=== PATIENT | female | born 1985 | race Caucasian/White ===

== ENCOUNTER 2016-11-26 11:57 | Inpatient (IN) | payer OTHER ==
[2016-11-26 11:59] VITALS: BP 117/71; PULSE 74; RESP 18; TEMP 99.1; O2SAT 99
[2016-11-26] MEDS ORDERED: DEXAMETHASONE SOD PHOS 20 MG/5 ML VIAL IV PUSH ONE (12:30)
[2016-11-26] MEDS ORDERED: AMPICILLIN-SULBACTAM INJ 3 GM in SODIUM CHLORIDE 0.9% INJ 100 ML IV ONE (12:30)
[2016-11-26] MEDS ORDERED: KETOROLAC TROMETHAMINE 30 MG/ML (IVP) VIAL IV PUSH ONE (12:30)
[2016-11-26] MEDS ORDERED: SODIUM CHLOR 0.9% 1000 ML INJ 1,000 ML IV ONE ×2 (12:30)
--- NOTE | 2016-11-26 12:32 | PD ---
HPI Chief Complaint: ENT Complaint Time Seen by Provider: 12:19 Travel History International Travel<30 days: No Contact w/Intl Traveler<30days: No Traveled to known affect area: No History of Present Illness HPI Patient is a 31-year-old female who presents to emergency room from urgent care center for evaluation of possible peritonsillar abscess. Patient reports that for the past week, she has had sore throat. Reports that she has had multiple episodes of tonsillitis which usually resolves on its own. Reports that she went to the urgent care today and was told to go directly to the ER for evaluation of possible peritonsillar abscess. Patient denies any fevers or chills, denies any nausea vomiting. Patient with no other complaints. PFSH Past Medical History Medical History: Denies Significant Hx Diabetes: No Diminished Hearing: No Medical other: Yes (H/O BACK PAIN) Reproductive: No Myocardial Infarction: No Tetanus Vaccination: > 5 Years Influenza Vaccination: No ?: Unknown : 2 Miscarriage: 1 : 1 Past Surgical History Surgical History: No Previous Surgery Gynecologic Surgery: Yes (LEAP PROCEDURE: 2008 FOR PRECANCEROUS CELLS ON CERVEX ) Social History Alcohol Use: Yes ([facility]) Tobacco Use: No (QUIT AGE 23) Substance Use: No Allergies-Medications (Allergen,Severity, Reaction): Coded Allergies: No Known Allergies (Verified , 11/26/16) Reported Meds & Prescriptions Reported Meds & Active Scripts Active No Active Prescriptions or Reported Medications Review of Systems General / Constitutional: No: Fever, Chills Eyes: No: Visual changes HENT: Positive: Sore Throat, No: Headaches Cardiovascular: No: Chest Pain or Discomfort Respiratory: No: Cough, Shortness of Breath Gastrointestinal: No: Abdominal Pain Genitourinary: No: Dysuria Musculoskeletal: No: Pain Skin: No Rash Neurologic: No: Weakness Psychiatric: No: Depression Endocrine: No: Polydipsia Hematologic/Lymphatic: No: Easy Bruising Physical Exam Narrative GENERAL: Mild distress SKIN: Focused skin assessment warm/dry. HEAD: Atraumatic. Normocephalic. EYES: No injection or drainage. ENT: No nasal bleeding or discharge. Mucous membranes pink and moist. Patient with exudates and erythema to posterior pharynx. Increased swelling to right tonsil. Uvula midline with no swelling NECK: Trachea midline. No JVD. CARDIOVASCULAR: Regular rate and rhythm. No murmur appreciated. RESPIRATORY: No accessory muscle use. Clear to auscultation. Breath sounds equal bilaterally. GASTROINTESTINAL: Abdomen soft, non-tender, nondistended. Hepatic and splenic margins not palpable. MUSCULOSKELETAL: No obvious deformities. No clubbing. No cyanosis. No edema. NEUROLOGICAL: Awake and alert. Motor grossly within normal limits. Normal speech. PSYCHIATRIC: Appropriate mood and affect; insight and judgment normal. Data Data Last Documented VS Vital Signs Date Time Temp Pulse Resp B/P (MAP) Pulse Ox O2 Delivery O2 Flow Rate FiO2 11/26/16 14:45 99.0 65 16 107/56 (73) 100 Room Air Orders Orders Basic Metabolic Panel (Bmp) (11/26/16 12:22) Complete Blood Count With Diff (11/26/16 12:22) Group A Rapid Strep Screen (11/26/16 12:22) Iv Access Insert/Monitor (11/26/16 12:22) Dexamethasone Inj (Decadron Inj) (11/26/16 12:30) Ampicillin-Sulbactam Inj (Unasyn Inj) (11/26/16 12:30) Ketorolac Inj (Toradol Inj) (11/26/16 12:30) Ed Urine Pregnancytest Poc (11/26/16 12:22) Ct Soft Tiss Neck W Iv Cont (11/26/16 ) Sodium Chlor 0.9% 1000 Ml Inj (Ns 1000 M (11/26/16 12:30) Sodium Chlor 0.9% 1000 Ml Inj (Ns 1000 M (11/26/16 12:30) Strep Culture (Group A) (11/26/16 12:40) Iohexol 350 Inj (Omnipaque 350 Inj) (11/26/16 13:46) Consult Ent (11/26/16 ) Diet Npo (11/26/16 Dinner) Admit Order (Ed Use Only) (11/26/16 14:45) Labs Laboratory Tests Test 11/26/16 12:40 White Blood Count 8.3 TH/MM3 Red Blood Count 5.06 MIL/MM3 Hemoglobin 14.6 GM/DL Hematocrit 42.3 % Mean Corpuscular Volume 83.5 FL Mean Corpuscular Hemoglobin 28.9 PG Mean Corpuscular Hemoglobin Concent 34.6 % Red Cell Distribution Width 11.5 % Platelet Count 244 TH/MM3 Mean Platelet Volume 8.5 FL Neutrophils (%) (Auto) 70.6 % Lymphocytes (%) (Auto) 18.6 % Monocytes (%) (Auto) 8.5 % Eosinophils (%) (Auto) 1.9 % Basophils (%) (Auto) 0.4 % Neutrophils # (Auto) 5.9 TH/MM3 Lymphocytes # (Auto) 1.5 TH/MM3 Monocytes # (Auto) 0.7 TH/MM3 Eosinophils # (Auto) 0.2 TH/MM3 Basophils # (Auto) 0.0 TH/MM3 CBC Comment DIFF FINAL Differential Comment Blood Urea Nitrogen 9 MG/DL Creatinine 0.81 MG/DL Random Glucose 90 MG/DL Calcium Level 9.0 MG/DL Sodium Level 141 MEQ/L Potassium Level 4.0 MEQ/L Chloride Level 106 MEQ/L Carbon Dioxide Level 30.3 MEQ/L Anion Gap 5 MEQ/L Estimat Glomerular Filtration Rate 83 ML/MIN MDM Medical Decision Making Medical Screen Exam Complete: Yes Emergency Medical Condition: Yes Medical Record Reviewed: Yes Interpretation(s) Vital Signs Date Time Temp Pulse Resp B/P (MAP) Pulse Ox O2 Delivery O2 Flow Rate FiO2 11/26/16 11:59 99.1 74 18 117/71 (86) 99 Differential Diagnosis Differential includes peritonsillar abscess, tonsillitis, strep pharyngitis, viral syndrome Narrative Course Patient is a 31-year-old female who presents to emergency room for evaluation of possible peritonsillar abscess. CBC, BMP, rapid strep ordered. CT of the soft tissue of neck ordered to evaluate for possible peritonsillar abscess. IV Decadron, Unasyn, IV fluids ordered for patient. Plan to monitor patient at this time. Microbiology Date/Time Source Procedure Growth Status 11/26/16 12:40 Throat Group A Streptococcus Screen Pending Received 11/26/16 12:40 Throat Group A Streptococcus Screen (JENI) - Final Complete group a strep neg Last Impressions Neck CT 11/26/16 0000 Signed Impressions: Service Date/Time: Saturday, November 26, 2016 13:37 - CONCLUSION: Ill- defined low density mass in the right side of the pharynx with soft tissue swelling, distortion and mass effect on the airway. There are no gas bubbles. This is most characteristic of an abscess. A mass could have a similar appearance. Israel Zarate MD Patient with what appears to be peritonsillar abscess with mass effect on the airway. Case reviewed with Dr. Staley who will see patient in consult. Plan to transfer to [facility] for care Case reviewed with Dr. Miranda who accepts pt to service at [facility] Critical Care Narrative Aggregate critical care time was 30 minutes. Time to perform other separately billable procedures was not included in the critical care time. My time did not include minutes spent treating any other patients simultaneously or on activities that did not directly contribute to the patient's treatment. The services I provided to this patient were to treat and/or prevent clinically significant deterioration that could result in: , decompensation, deterioration I provided critical care services requiring my management, as noted below: Chart data review, documentation time, medication orders and management, vital sign assessments/reviewing monitor data, ordering and reviewing lab tests, ordering and interpreting/reviewing x-rays and diagnostic studies, care of the patient and discussion of the patient with the admitting physicians. Diagnosis Primary Impression: Peritonsillar abscess Admitting Information Admitting Physician Requests: Admit Scripts No Active Prescriptions or Reported Meds Nataliya Yepez DO Nov 26, 2016 12:32
[2016-11-26 12:55] LABS: AUTOMATED NEUTROPHIL # 5.9 TH/MM3 (1.8-7.7); BASOPHIL % 0.4 % (0.0-2.0); EOSINOPHIL # 0.2 TH/MM3 (0-0.4); EOSINOPHIL % 1.9 % (0.0-4.0); HEMATOCRIT 42.3 % (35.0-46.0); HEMO FLAGS DIFF FINAL; LYMPH % 18.6 % (9.0-44.0); LYMPHOCYTE # 1.5 TH/MM3 (1.0-4.8); MEAN CELL VOLUME 83.5 FL (80.0-100.0); MEAN CORPUSCULAR HEMOGLOBIN 28.9 PG (27.0-34.0); MEAN CORPUSCULAR HGB CONC 34.6 % (32.0-36.0); MONO % 8.5 % (0.0-8.0); NEUT % 70.6 % (16.0-70.0); PLATELET COUNT 244 TH/MM3 (150-450); RED BLOOD COUNT 5.06 MIL/MM3 (4.00-5.30); RED CELL DISTRIBUTION WIDTH 11.5 % (11.6-17.2); WHITE BLOOD COUNT 8.3 TH/MM3 (4.0-11.0)
[2016-11-26 13:31] LABS: BICARBONATE 30.3 MEQ/L (21.0-32.0)
[2016-11-26] MEDS ORDERED: IOHEXOL 350 MG/ML 10 ML VIAL (for RAD DIAG) IVCONTRAST ONE (13:46)
--- NOTE | 2016-11-26 14:03 | RADRPT ---
EXAM DATE/TIME: 11/26/2016 13:37 [facility] COMPARISON: No previous studies available for comparison. INDICATIONS : Swollen tonsils. Neck pain. Evaluate for abscess. IV CONTRAST: 80 cc Omnipaque 350 (iohexol) IV RADIATION DOSE: 11.75 CTDIvol (mGy) MEDICAL HISTORY : None SURGICAL HISTORY : None. ENCOUNTER: Initial ACUITY: 2 days PAIN SCALE: 7/10 LOCATION: neck TECHNIQUE: Volumetric scanning of the neck was performed. Using automated exposure control and adjustment of th e mA and/or kV according to patient size, radiation dose was kept as low as reasonably achievable to obtain optimal diagnostic quality images. DICOM format image data is available electronically for r eview and comparison. FINDINGS: NASOPHARYNX: The nasopharyngeal airway has a normal configuration. No mucosal thickening or mass is seen. There i s a small retention cyst in the right maxillary sinus. OROPHARYNX: The intrinsic muscles of the tongue are symmetric. There is an ill-defined low density mass in the ri ght side of pharynx measuring up to least 1.9 x 1.9 cm. This extends from the nasopharynx down to the base of the tongue. There is distortion of the soft tissues with mass effect on the airway. The airw ay is displaced to the left approximately 8-9 mm. There no gas bubbles. LARYNX: The supraglottic, glottic, and infraglottic structures are intact. PARAPHARYNGEAL: The parapharyngeal space is intact. SALIVARY GLANDS: The parotid and submandibular glands are intact. LYMPH NODES: There is a mildly prominent right cervical chain node with no necrosis. This measures up to approxima tely 1.2 x 1 cm and likely is reactive. There are smaller scattered reactive appearing nodes. THYROID: Homogeneous enhancement without evidence of nodule. BONES: Unremarkable. CONCLUSION: Ill-defined low density mass in the right side of the pharynx with soft tissue swelling, distortion a nd mass effect on the airway. There are no gas bubbles. This is most characteristic of an abscess. A mass could have a similar appearance. Israel Zarate MD on November 26, 2016 at 13:56 Board Certified Radiologist. This report was verified electronically.
[2016-11-26 14:45] VITALS: BP 107/56; PULSE 65; RESP 16; TEMP 99; O2SAT 100
[2016-11-26] MEDS ORDERED: KETOROLAC TROMETHAMINE 30 MG/ML (IVP) VIAL IV PUSH PRN (15:00)
[2016-11-26 16:45] VITALS: BP 154/65; PULSE 76; RESP 22; O2SAT 92
[2016-11-26 16:46] VITALS: BP 119/75; PULSE 79; RESP 16; O2SAT 98
[2016-11-26 17:30] VITALS: BP 104/61; PULSE 61; RESP 18; TEMP 97.9; O2SAT 98
[2016-11-26] MEDS: SODIUM CHLOR 0.9% 1000 ML INJ 1,000 ML IV SCH (17:47)
[2016-11-26] MEDS: AMPICILLIN-SULBACTAM INJ 3 GM in SODIUM CHLORIDE 0.9% INJ 100 ML IV SCH (17:48)
--- NOTE | 2016-11-26 18:25 | HHI.HP ---
[facility] No Primary Care Physician Admission Diagnosis Peritonsillar abscess with airway involvement Diagnoses: (1) Peritonsillar abscess Diagnosis: Principal Chief Complaint: sore throat Travel History International Travel<30 Days: No Contact w/Intl Traveler <30 Da: No Traveled to Known Affected Are: No History of Present Illness patient is a 31 y/o female with no significant past medical history who presented with sore throat. she says that she's always had ' tonsil problem' . this time her sore throat started two days ago but it didn't improve which made her to seek medical attention. she doesn't report any fever or chills but had some difficulty swallowing. at the time of my evaluation she was resting comfortably with no distress. her sore throat has improved. Review of Systems Constitutional: DENIES: Fever, Weight loss, Chills, Night Sweats Eyes: DENIES: Blurred vision, Diplopia, Vision loss, Double Vision Ears, nose, mouth, throat: COMPLAINS OF: Throat pain, DENIES: Tinnitus, Vertigo , Epistaxis Respiratory: DENIES: Apneas, Cough, Snoring, Wheezing, Hemoptysis, Sputum production, Shortness of breath Cardiovascular: DENIES: Chest pain, Palpitations, Syncope, Dyspnea on Exertion , PND, Lower Extremity Edema, Orthopnea, Claudication Gastrointestinal: COMPLAINS OF: Difficulty Swallowing, DENIES: Abdominal pain, Black stools, Bloody stools, Constipation, Diarrhea, Nausea, Vomiting, Anorexia Genitourinary: DENIES: Urinary frequency, Urgency, Hematuria, Dysuria Musculoskeletal: DENIES: Joint pain, Muscle aches, Stiffness, Joint Swelling Integumentary: DENIES: Rash Neurologic: DENIES: Abnormal gait, Headache, Localized weakness, Paresthesias, Seizures, Speech Problems, Tremor, Poor Balance Psychiatric: DENIES: Anxiety, Confusion, Mood changes, Depression, Hallucinations, Agitation, Suicidal Ideation, Homicidal Ideation, Delusions Past Family Social History Past Medical History not significant. Past Surgical History leap procedure. Reported Medications none reported. Allergies: Coded Allergies: No Known Allergies (Verified , 11/26/16) Active Ordered Medications Current Medications Dexamethasone Sodium Phosphate (Decadron Inj) 10 mg ONCE ONCE IV PUSH Last administered on 11/26/16 12:47; Start 11/26/16 at 12:30; Stop 11/26/16 at 12:31 ; Status DC Ampicillin Sodium/ Sulbactam Sodium 3 gm/Sodium Chloride 100 ml @ 200 mls/hr ONCE ONCE IV Last administered on 11/26/16 12:47; Start 11/26/16 at 12:30; Stop 11/26/16 at 12:59; Status DC Ketorolac Tromethamine (Toradol Inj) 30 mg ONCE ONCE IV PUSH Last administered on 11/26/16 12:47; Start 11/26/16 at 12:30; Stop 11/26/16 at 12:31 ; Status DC Sodium Chloride 1,000 ml @ 999 mls/hr BOLUS ONCE IV Last administered on 11/26 12:47; Start 11/26/16 at 12:30; Stop 11/26/16 at 13:30; Status DC Sodium Chloride 1,000 ml @ 999 mls/hr BOLUS ONCE IV Last administered on 11/26 14:14; Start 11/26/16 at 12:30; Stop 11/26/16 at 13:30; Status DC Iohexol (Omnipaque 350 Inj) 80 ml STK-MED ONCE IVCONTRAST Last administered on 11/26/16 13:46; Start 11/26/16 at 13:46; Stop 11/26/16 at 13:47; Status DC Sodium Chloride 1,000 ml @ 100 mls/hr Q10H IV Last administered on 11/26/16 17:47; Start 11/26/16 at 15:00 Ampicillin Sodium/ Sulbactam Sodium 3 gm/Sodium Chloride 100 ml @ 200 mls/hr Q6H IV Last administered on 11/26/16 17:48; Start 11/26/16 at 18:00 Ketorolac Tromethamine (Toradol Inj) 15 mg Q6HR PRN IV PUSH FEVER/PAIN 1-10; Start 11/26/16 at 15:00; Stop 12/01/16 at 14:59 Family History hypertension in both parents. Social History doesn't smoke.drinks occasionally. Physical Exam Vital Signs Vital Signs Date Time Temp Pulse Resp B/P (MAP) Pulse Ox O2 Delivery O2 Flow Rate FiO2 11/26/16 16:47 11/26/16 16:46 79 16 119/75 (90) 98 Room Air 11/26/16 14:45 99.0 65 16 107/56 (73) 100 Room Air 11/26/16 11:59 99.1 74 18 117/71 (86) 99 Physical Exam GENERAL: This is a well-nourished, well-developed patient, in no apparent distress. SKIN: No rashes, ecchymoses or lesions. Cool and dry. HEAD: Atraumatic. Normocephalic. No temporal or scalp tenderness. EYES: Pupils equal round and reactive. Extraocular motions intact. No scleral icterus. No injection or drainage. ENT:enlarged tonsil on the right NECK: Trachea midline. No JVD or lymphadenopathy. Supple, nontender, no meningeal signs. CARDIOVASCULAR: Regular rate and rhythm without murmurs, gallops, or rubs. RESPIRATORY: Clear to auscultation. Breath sounds equal bilaterally. No wheezes , rales, or rhonchi. GASTROINTESTINAL: Abdomen soft, non-tender, nondistended. No hepato-splenomegaly , or palpable masses. No guarding. MUSCULOSKELETAL: Extremities without clubbing, cyanosis, or edema. No joint tenderness, effusion, or edema noted. No calf tenderness. Negative Homans sign bilaterally. NEUROLOGICAL: Awake and alert. Cranial nerves II through XII intact. Motor and sensory grossly within normal limits. Five out of 5 muscle strength in all muscle groups. Normal speech. Laboratory Laboratory Tests Test 11/26/16 12:40 White Blood Count 8.3 Red Blood Count 5.06 Hemoglobin 14.6 Hematocrit 42.3 Mean Corpuscular Volume 83.5 Mean Corpuscular Hemoglobin 28.9 Mean Corpuscular Hemoglobin Concent 34.6 Red Cell Distribution Width 11.5 Platelet Count 244 Mean Platelet Volume 8.5 Neutrophils (%) (Auto) 70.6 Lymphocytes (%) (Auto) 18.6 Monocytes (%) (Auto) 8.5 Eosinophils (%) (Auto) 1.9 Basophils (%) (Auto) 0.4 Neutrophils # (Auto) 5.9 Lymphocytes # (Auto) 1.5 Monocytes # (Auto) 0.7 Eosinophils # (Auto) 0.2 Basophils # (Auto) 0.0 CBC Comment DIFF FINAL Differential Comment Blood Urea Nitrogen 9 Creatinine 0.81 Random Glucose 90 Calcium Level 9.0 Sodium Level 141 Potassium Level 4.0 Chloride Level 106 Carbon Dioxide Level 30.3 Anion Gap 5 Estimat Glomerular Filtration Rate 83 Date/Time Source Procedure Growth Status 11/26/16 12:40 Throat Group A Streptococcus Screen Pending Received Result Diagram: 11/26/16 1240 11/26/16 1240 Imaging Last Impressions Neck CT 11/26/16 0000 Signed Impressions: Service Date/Time: Saturday, November 26, 2016 13:37 - CONCLUSION: Ill- defined low density mass in the right side of the pharynx with soft tissue swelling, distortion and mass effect on the airway. There are no gas bubbles. This is most characteristic of an abscess. A mass could have a similar appearance. MD Niall Loving VTE Risk Assessment Niall VTE Risk Assessment: No/Low Risk (score <= 1) Caprini Risk Assessment Model Point Value = 1 Point Value = 2 Point Value = 3 Point Value = 5 Age 41-60 Minor surgery BMI > 25 kg/m2 Swollen legs Varicose veins or History of unexplained or recurrent spontaneous Oral contraceptives or hormone replacement Sepsis (< 1 month) Serious lung disease, including pneumonia (< 1 month) Abnormal pulmonary function Acute myocardial infarction Congestive heart failure (< 1 month) History of inflammatory bowel disease Medical patient at bed rest Age 61-74 Arthroscopic surgery Major open surgery (> 45 min) Laparoscopic surgery (> 45 min) Malignancy Confined to bed (> 72 hours) Immobilizing plaster cast Central venous access Age >= 75 History of VTE Family history of VTE Factor V Leiden Prothrombin [id number] Lupus anticoagulant Anticardiolipin antibodies Elevated serum homocysteine Heparin-induced thrombocytopenia Other congenital or acquired thrombophilia Stroke (< 1 month) Elective arthroplasty Hip, pelvis, or leg fracture Acute spinal cord injury (< 1 month) Prophylaxis Regimen Total Risk Factor Score Risk Level Prophylaxis Regimen 0-1 Low Early ambulation 2 Moderate Order ONE of the following: *Sequential Compression Device (SCD) *Heparin 5000 units SQ BID 3-4 Higher Order ONE of the following medications: *Heparin 5000 units SQ TID *Enoxaparin/Lovenox 40 mg SQ daily (WT < 150 kg, CrCl > 30 mL/min) *Enoxaparin/Lovenox 30 mg SQ daily (WT < 150 kg, CrCl > 10-29 mL/min) *Enoxaparin/Lovenox 30 mg SQ BID (WT < 150 kg, CrCl > 30 mL/min) AND/OR *Sequential Compression Device (SCD) 5 or more Highest Order ONE of the following medications: *Heparin 5000 units SQ TID (Preferred with Epidurals) *Enoxaparin/Lovenox 40 mg SQ daily (WT < 150 kg, CrCl > 30 mL/min) *Enoxaparin/Lovenox 30 mg SQ daily (WT < 150 kg, CrCl > 10-29 mL/min) *Enoxaparin/Lovenox 30 mg SQ BID (WT < 150 kg, CrCl > 30 mL/min) AND *Sequential Compression Device (SCD) Assessment and Plan Assessment and Plan A/P - peritonsillar abscess continue with IV Unasyn and pain control. NPO for now and continue IV fluid- ENT consulted. -DVT prophylaxis- low risk; early ambulation Discussed Condition With ER physician and the patient. Physician Certification 2 Midnight Certification Type: Admission for Inpatient Services Order for Inpatient Services The services are ordered in accordance with Medicare regulations or non- Medicare payer requirements, as applicable. In the case of services not specified as inpatient-only, they are appropriately provided as inpatient services in accordance with the 2-midnight benchmark. Estimated LOS (days): 2 days is the estimated time the patient will need to remain in the hospital, assuming treatment plan goals are met and no additional complications. Post-Hospital Plan: Home Physician Certification 2 Midnight Certification Type: Admission for Inpatient Services Order for Inpatient Services The services are ordered in accordance with Medicare regulations or non- Medicare payer requirements, as applicable. In the case of services not specified as inpatient-only, they are appropriately provided as inpatient services in accordance with the 2-midnight benchmark. Estimated LOS (days): 2 days is the estimated time the patient will need to remain in the hospital, assuming treatment plan goals are met and no additional complications. Post-Hospital Plan: Home Bhanu Jimenez MD Nov 26, 2016 18:25
[2016-11-26] MEDS ORDERED: ONDANSETRON HCL 4 MG/2 ML VIAL IV PUSH PRN (18:30)
[2016-11-26 21:05] VITALS: BP 109/70; PULSE 83; RESP 16; TEMP 99; O2SAT 97
[2016-11-26] MEDS: DEXAMETHASONE SOD PHOS 20 MG/5 ML VIAL IV SCH (22:12)
[2016-11-27] MEDS: AMPICILLIN-SULBACTAM INJ 3 GM in SODIUM CHLORIDE 0.9% INJ 100 ML IV SCH ×5 (00:41→23:58)
[2016-11-27 00:50] VITALS: BP 91/54; PULSE 74; RESP 16; TEMP 97; O2SAT 100
[2016-11-27] MEDS: SODIUM CHLOR 0.9% 1000 ML INJ 1,000 ML IV SCH ×3 (01:00→21:00)
[2016-11-27 03:45] VITALS: BP 105/58; PULSE 66; RESP 16; TEMP 96.4; O2SAT 97
--- NOTE | 2016-11-27 05:26 | MB ---
cc: SALOMÓN STALEY MD DATE OF CONSULTATION 11/26/2016 CHIEF COMPLAINT Peritonsillar infection. HISTORY The patient is a pleasant 31-year-old female with a CT-confirmed right peritonsillar infection. She had no shortness of breath but she has had sore throat. She is feeling improved over throughout the evening with just Unasyn on board. I believe she got one dose of Decadron prior to transfer. The patient is currently somewhat anxious to eat, feeling much better. FINDINGS On flexible fiberoptic laryngoscopy the patient had mild fullness in the right peripharyngeal area but no definitive abscess. Her airway was otherwise widely and her larynx and her vocal cords move well bilaterally. RECOMMENDATIONS 1. As the patient is starting to improve, I recommend giving her a liquid diet this evening. 2. I also recommend Decadron 10 mg IV q.8 hours x up to 5 doses depending on how long the patient is in house. 3. Also recommend the patient continue the IV antibiotics. 4. The patient will likely be able to go home either tomorrow evening or Sunday depending on how she is feeling. 5. I recommend, when she goes home, she go home on two weeks of oral antibiotics as well as a Medrol Dosepak. 6. The patient may follow up with ENT in two to four weeks or earlier as needed. Thank you for this consultation. Salomón Staley MD CCP/SSB /9:02 PM /5:16 AM
[2016-11-27] MEDS: DEXAMETHASONE SOD PHOS 20 MG/5 ML VIAL IV SCH ×3 (05:56→21:33)
[2016-11-27 08:00] VITALS: BP 102/59; PULSE 52; RESP 18; TEMP 97.2; O2SAT 96
[2016-11-27 08:41] LABS: AUTOMATED NEUTROPHIL # 13.6 TH/MM3 (1.8-7.7); BASOPHIL % 0.2 % (0.0-2.0); HEMATOCRIT 38.8 % (35.0-46.0); HEMO FLAGS DIFF FINAL; LYMPH % 7.5 % (9.0-44.0); LYMPHOCYTE # 1.1 TH/MM3 (1.0-4.8); MEAN CELL VOLUME 84.2 FL (80.0-100.0); MEAN CORPUSCULAR HEMOGLOBIN 28.4 PG (27.0-34.0); MEAN CORPUSCULAR HGB CONC 33.8 % (32.0-36.0); MONO % 2.2 % (0.0-8.0); NEUT % 90.1 % (16.0-70.0); PLATELET COUNT 230 TH/MM3 (150-450); RED BLOOD COUNT 4.61 MIL/MM3 (4.00-5.30); RED CELL DISTRIBUTION WIDTH 12.3 % (11.6-17.2); WHITE BLOOD COUNT 15.1 TH/MM3 (4.0-11.0)
--- NOTE | 2016-11-27 09:03 | HHI.PR ---
Subjective Remarks resting comfortably with no distress. sore throat is better. no fever. no new complaints. Objective Vitals Vital Signs Date Time Temp Pulse Resp B/P (MAP) Pulse Ox O2 Delivery O2 Flow Rate FiO2 11/27/16 03:45 96.4 66 16 105/58 (74) 97 11/27/16 00:50 97.0 74 16 91/54 (66) 100 11/26/16 21:05 99.0 83 16 109/70 (83) 97 11/26/16 17:30 97.9 61 18 104/61 (75) 98 11/26/16 16:47 11/26/16 16:46 79 16 119/75 (90) 98 Room Air 11/26/16 14:45 99.0 65 16 107/56 (73) 100 Room Air 11/26/16 11:59 99.1 74 18 117/71 (86) 99 I/O 11/26/16 11/26/16 11/26/16 11/27/16 11/27/16 11/27/16 07:00 15:00 23:00 07:00 15:00 23:00 Intake Total 1100 ml 1660 ml 590 ml Balance 1100 ml 1660 ml 590 ml Intake Oral 660 ml 240 ml IV Total 1100 ml 1000 ml 350 ml # Voids 1 2 # Bowel Movements 0 0 Result Diagram: 11/27/16 0807 11/26/16 1240 Imaging Last Impressions Neck CT 11/26/16 0000 Signed Impressions: Service Date/Time: Saturday, November 26, 2016 13:37 - CONCLUSION: Ill- defined low density mass in the right side of the pharynx with soft tissue swelling, distortion and mass effect on the airway. There are no gas bubbles. This is most characteristic of an abscess. A mass could have a similar appearance. Israel Zarate MD Objective Remarks GENERAL: This is a well-nourished, well-developed patient, in no apparent distress. CARDIOVASCULAR: Regular rate and regular rhythm without murmurs, gallops, or rubs. RESPIRATORY: Clear to auscultation. Breath sounds equal bilaterally. No wheezes , rales, or rhonchi. GASTROINTESTINAL: Abdomen soft, non-tender, nondistended. Normal, active bowel sounds MUSCULOSKELETAL: Extremities without clubbing, cyanosis, or edema. NEURO: Alert & Oriented x4 to person, place, time, situation. Moves all ext x4 Procedures flexible laryngoscopy Medications and IVs Current Medications Dexamethasone Sodium Phosphate (Decadron Inj) 10 mg ONCE ONCE IV PUSH Last administered on 11/26/16 12:47; Start 11/26/16 at 12:30; Stop 11/26/16 at 12:31 ; Status DC Ampicillin Sodium/ Sulbactam Sodium 3 gm/Sodium Chloride 100 ml @ 200 mls/hr ONCE ONCE IV Last administered on 11/26/16 12:47; Start 11/26/16 at 12:30; Stop 11/26/16 at 12:59; Status DC Ketorolac Tromethamine (Toradol Inj) 30 mg ONCE ONCE IV PUSH Last administered on 11/26/16 12:47; Start 11/26/16 at 12:30; Stop 11/26/16 at 12:31 ; Status DC Sodium Chloride 1,000 ml @ 999 mls/hr BOLUS ONCE IV Last administered on 11/26 12:47; Start 11/26/16 at 12:30; Stop 11/26/16 at 13:30; Status DC Sodium Chloride 1,000 ml @ 999 mls/hr BOLUS ONCE IV Last administered on 11/26 14:14; Start 11/26/16 at 12:30; Stop 11/26/16 at 13:30; Status DC Iohexol (Omnipaque 350 Inj) 80 ml STK-MED ONCE IVCONTRAST Last administered on 11/26/16 13:46; Start 11/26/16 at 13:46; Stop 11/26/16 at 13:47; Status DC Sodium Chloride 1,000 ml @ 100 mls/hr Q10H IV Last administered on 11/26/16 17:47; Start 11/26/16 at 15:00 Ampicillin Sodium/ Sulbactam Sodium 3 gm/Sodium Chloride 100 ml @ 200 mls/hr Q6H IV Last administered on 11/27/16 05:56; Start 11/26/16 at 18:00 Ketorolac Tromethamine (Toradol Inj) 15 mg Q6HR PRN IV PUSH FEVER/PAIN 1-10; Start 11/26/16 at 15:00; Stop 12/01/16 at 14:59 Ondansetron HCl (Zofran Inj) 4 mg Q8HR PRN IV PUSH NAUSEA; Start 11/26/16 at 18 :30 Dexamethasone Sodium Phosphate (Decadron Inj) 10 mg Q8H IV Last administered on 11/27/16t 05:56; Start 11/26/16 at 22:00; Stop 11/28/16 at 06:01 A/P Assessment and Plan - peritonsillar abscess ENT consulted - s/p flexible laryngoscopy continue with IV Unasyn, IV steroids and pain control. started on diet- -leukocytosis due to steroids- afebrile. -DVT prophylaxis- low risk; early ambulation Discharge Planning dc home tomorrow if stable. Bhanu Jimenez MD Nov 27, 2016 09:03
[2016-11-27] MEDS ORDERED: AUGM875T3 PO (09:04)
[2016-11-27] MEDS ORDERED: MEDR4PAK PO (09:04)
[2016-11-27 09:08] LABS: BICARBONATE 24.8 MEQ/L (21.0-32.0); POTASSIUM 4.8 MEQ/L (3.5-5.1)
[2016-11-27 12:00] VITALS: BP 94/50; PULSE 58; RESP 18; TEMP 98.1; O2SAT 98
[2016-11-27 16:00] VITALS: BP 104/56; PULSE 67; RESP 18; TEMP 97.8; O2SAT 99
[2016-11-27 20:10] VITALS: BP 104/62; PULSE 63; RESP 17; TEMP 98.2; O2SAT 95
[2016-11-28] VITALS: BP 115/58; PULSE 64; RESP 15; TEMP 96.8; O2SAT 98
[2016-11-28] MEDS: AMPICILLIN-SULBACTAM INJ 3 GM in SODIUM CHLORIDE 0.9% INJ 100 ML IV SCH (06:27)
[2016-11-28] MEDS: DEXAMETHASONE SOD PHOS 20 MG/5 ML VIAL IV SCH (06:27)
[2016-11-28] MEDS: SODIUM CHLOR 0.9% 1000 ML INJ 1,000 ML IV SCH (07:00)
[2016-11-28 08:00] VITALS: BP 107/62; PULSE 53; RESP 18; TEMP 96.6; O2SAT 96
--- NOTE | 2016-11-28 09:55 | HHI.DS ---
Discharge Summary Admission Date Nov 26, 2016 at 14:46 Discharge Date: Nov 28, 2016 Admitting Diagnosis Peritonsillar abscess with airway involvement (1) Peritonsillar abscess ICD Code: J36 - Peritonsillar abscess Diagnosis: Principal Status: Acute Procedures flexible laryngoscopy Brief History - From Admission patient is a 31 y/o female with no significant past medical history who presented with sore throat. she says that she's always had ' tonsil problem' . this time her sore throat started two days ago but it didn't improve which made her to seek medical attention. she doesn't report any fever or chills but had some difficulty swallowing. at the time of my evaluation she was resting comfortably with no distress. her sore throat has improved. CBC/BMP: 11/27/16 0807 11/27/16 0807 Significant Findings Laboratory Tests Test 11/26/16 12:40 11/27/16 08:07 Red Cell Distribution Width 11.5 % (11.6-17.2) Neutrophils (%) (Auto) 70.6 % (16.0-70.0) 90.1 % (16.0-70.0) Monocytes (%) (Auto) 8.5 % (0.0-8.0) Estimat Glomerular Filtration Rate 83 ML/MIN (>89) White Blood Count 15.1 TH/MM3 (4.0-11.0) Lymphocytes (%) (Auto) 7.5 % (9.0-44.0) Neutrophils # (Auto) 13.6 TH/MM3 (1.8-7.7) Random Glucose 140 MG/DL (74-106) Chloride Level 108 MEQ/L (98-107) Imaging Last Impressions Neck CT 11/26/16 0000 Signed Impressions: Service Date/Time: Saturday, November 26, 2016 13:37 - CONCLUSION: Ill- defined low density mass in the right side of the pharynx with soft tissue swelling, distortion and mass effect on the airway. There are no gas bubbles. This is most characteristic of an abscess. A mass could have a similar appearance. Israel Zarate MD PE at Discharge GENERAL: This is a well-nourished, well-developed patient, in no apparent distress. CARDIOVASCULAR: Regular rate and regular rhythm without murmurs, gallops, or rubs. RESPIRATORY: Clear to auscultation. Breath sounds equal bilaterally. No wheezes , rales, or rhonchi. GASTROINTESTINAL: Abdomen soft, non-tender, nondistended. Normal, active bowel sounds MUSCULOSKELETAL: Extremities without clubbing, cyanosis, or edema. NEURO: Alert & Oriented x4 to person, place, time, situation. Moves all ext x4 Hospital Course - peritonsillar abscess- improved. ENT consulted - s/p flexible laryngoscopy treated with IV Unasyn, IV steroids ; will switch to po augmentin and medrol dosepak. -leukocytosis due to steroids- afebrile. -DVT prophylaxis- low risk; early ambulation Pt Condition on Discharge: Good Discharge Disposition: Discharge Home Discharge Time: <= 30 minutes Discharge Instructions DIET: Follow Instructions for: As Tolerated, No Restrictions Activities you can perform: Regular-No Restrictions Follow up Referrals: Ear Nose Throat PCP Follow-up New Medications: Amoxicillin-Clavulanate (Augmentin) 875-125 Mg Tab 1 TAB PO BID for Infection for 14 Days, #28 TAB 0 Refills Methylprednisolone Dosepak (Medrol Dosepak) 4 Mg Dspk 4 MG PO DIRECTED, #1 DSPK 0 Refills Per Pharmacist direction Bhanu Jimenez MD Nov 28, 2016 09:55
--- NOTE | 2016-11-28 09:55 | HHI.PR ---
Subjective Remarks in no distress. afebrile. has mild sore throat otherwise no other complaints. wants to go home today. Objective Vitals Vital Signs Date Time Temp Pulse Resp B/P (MAP) Pulse Ox O2 Delivery O2 Flow Rate FiO2 11/28/16 08:00 96.6 53 18 107/62 (77) 96 11/28/16 00:00 96.8 64 15 115/58 (77) 98 11/27/16 20:10 98.2 63 17 104/62 (76) 95 11/27/16 16:00 97.8 67 18 104/56 (72) 99 11/27/16 12:00 98.1 58 18 94/50 (65) 98 I/O 11/27/16 11/27/16 11/27/16 11/28/16 11/28/16 11/28/16 07:00 15:00 23:00 07:00 15:00 23:00 Intake Total 590 ml 800 ml 240 ml 480 ml Balance 590 ml 800 ml 240 ml 480 ml Intake Oral 240 ml 600 ml 240 ml 480 ml IV Total 350 ml 200 ml # Voids 2 3 2 3 # Bowel Movements 0 0 0 0 Result Diagram: 11/27/16 0807 11/27/16 0807 Imaging Last Impressions Neck CT 11/26/16 0000 Signed Impressions: Service Date/Time: Saturday, November 26, 2016 13:37 - CONCLUSION: Ill- defined low density mass in the right side of the pharynx with soft tissue swelling, distortion and mass effect on the airway. There are no gas bubbles. This is most characteristic of an abscess. A mass could have a similar appearance. Israel Zarate MD Objective Remarks GENERAL: This is a well-nourished, well-developed patient, in no apparent distress. CARDIOVASCULAR: Regular rate and regular rhythm without murmurs, gallops, or rubs. RESPIRATORY: Clear to auscultation. Breath sounds equal bilaterally. No wheezes , rales, or rhonchi. GASTROINTESTINAL: Abdomen soft, non-tender, nondistended. Normal, active bowel sounds MUSCULOSKELETAL: Extremities without clubbing, cyanosis, or edema. NEURO: Alert & Oriented x4 to person, place, time, situation. Moves all ext x4 Procedures flexible laryngoscopy Medications and IVs Current Medications Dexamethasone Sodium Phosphate (Decadron Inj) 10 mg ONCE ONCE IV PUSH Last administered on 11/26/16 12:47; Start 11/26/16 at 12:30; Stop 11/26/16 at 12:31 ; Status DC Ampicillin Sodium/ Sulbactam Sodium 3 gm/Sodium Chloride 100 ml @ 200 mls/hr ONCE ONCE IV Last administered on 11/26/16 12:47; Start 11/26/16 at 12:30; Stop 11/26/16 at 12:59; Status DC Ketorolac Tromethamine (Toradol Inj) 30 mg ONCE ONCE IV PUSH Last administered on 11/26/16 12:47; Start 11/26/16 at 12:30; Stop 11/26/16 at 12:31 ; Status DC Sodium Chloride 1,000 ml @ 999 mls/hr BOLUS ONCE IV Last administered on 11/26 12:47; Start 11/26/16 at 12:30; Stop 11/26/16 at 13:30; Status DC Sodium Chloride 1,000 ml @ 999 mls/hr BOLUS ONCE IV Last administered on 11/26 14:14; Start 11/26/16 at 12:30; Stop 11/26/16 at 13:30; Status DC Iohexol (Omnipaque 350 Inj) 80 ml STK-MED ONCE IVCONTRAST Last administered on 11/26/16 13:46; Start 11/26/16 at 13:46; Stop 11/26/16 at 13:47; Status DC Sodium Chloride 1,000 ml @ 100 mls/hr Q10H IV Last administered on 11/27/16 11:40; Start 11/26/16 at 15:00 Ampicillin Sodium/ Sulbactam Sodium 3 gm/Sodium Chloride 100 ml @ 200 mls/hr Q6H IV Last administered on 11/28/16 06:27; Start 11/26/16 at 18:00 Ketorolac Tromethamine (Toradol Inj) 15 mg Q6HR PRN IV PUSH FEVER/PAIN 1-10; Start 11/26/16 at 15:00; Stop 12/01/16 at 14:59 Ondansetron HCl (Zofran Inj) 4 mg Q8HR PRN IV PUSH NAUSEA; Start 11/26/16 at 18 :30 Dexamethasone Sodium Phosphate (Decadron Inj) 10 mg Q8H IV Last administered on 11/28/16t 06:27; Start 11/26/16 at 22:00; Stop 11/28/16 at 06:01; Status DC A/P Assessment and Plan A/P - peritonsillar abscess- improved. ENT consulted - s/p flexible laryngoscopy treated with IV Unasyn, IV steroids ; will switch to po augmentin and medrol dosepak. -leukocytosis due to steroids- afebrile. -DVT prophylaxis- low risk; early ambulation Discharge Planning dc home day. see med list. f/u; ENT. d/w the patient and BONY. Bhanu Jimenez MD Nov 28, 2016 09:55
== END 2016-11-28 12:00 | disposition home or self-care (01) | DRG 153 ==
LOC: PHED 11:57 → PHEDA 14:46 → N06A 17:21
PROVIDERS: ADMIT Internal Medicine; ATTEND Internal Medicine
PROC: 0CJS8ZZ Inspection of Larynx, Via Natural or Artificial Opening Endoscopic (ICD-10-PCS; principal; 2016-11-26)
DX: J36 Peritonsillar abscess (principal); R13.10 Dysphagia, unspecified; Z87.891 Personal history of nicotine dependence
CPT/HCPCS: 70491; 80048; 84703; 85025; 87081; 87880; 96361; 96365; 96375; J0295; J1100; J1885; J7030; Q9967

== ENCOUNTER 2017-06-10 22:28 | Emergency (ER) | payer SELFPAY ==
[~2017-06-10 22:28] MED LIST: AUGM875T3 PO; MEDR4PAK PO
[2017-06-10 22:33] VITALS: BP 153/66; PULSE 68; RESP 20; TEMP 99.6; O2SAT 98
--- NOTE | 2017-06-10 23:14 | RADRPT ---
EXAM DATE/TIME: 06/10/2017 22:54 [facility] COMPARISON: No previous studies available for comparison. INDICATIONS : Right lateral ankle pain after [place] ankle [place] trampoline park . MEDICAL HISTORY : None. SURGICAL HISTORY : None. ENCOUNTER: Initial ACUITY: 1 day PAIN SCORE: 7/10 LOCATION: Right ankle FINDINGS: Three view exam was performed of the right ankle. Soft tissue swelling. Ankle mortise intact. No frac ture seen. Bony mineralization is normal. CONCLUSION: 1. Soft tissue swelling without fracture. Shaji Echavarria MD on June 10, 2017 at 23:13 Board Certified Radiologist. This report was verified electronically.
[2017-06-10 23:47] VITALS: BP 117/70; PULSE 65; RESP 18; O2SAT 97
--- NOTE | 2017-06-11 00:16 | PD ---
HPI Chief Complaint: Injury Time Seen by Provider: 00:13 Travel History International Travel<30 days: Yes Contact w/Intl Traveler<30days: Yes Name of Country Traveled to: [place] Traveled to known affect area: No History of Present Illness HPI 32-year-old female presents to the emergency department for injury to her right ankle. Patient states she was jumping off of a trampoline and landed on padding but her ankle rolled. Patient rates pain as moderate to severe. Patient has crutches. Patient is concerned about fracture. No obvious dislocation. Patient has no numbness tingling or weakness of the foot or extremity. Patient denies other injury. Patient did not hit her head did not have loss of consciousness did not injure her neck jaw back shoulder arms PFSH Past Medical History Narrative Medical LEEP procedure, chronic back pain; occasional alcohol use; nursing notes reviewed Medical History: Denies Significant Hx Cancer: No Cardiovascular Problems: No Diabetes: No Diminished Hearing: No Endocrine: No Genitourinary: No Immune Disorder: No Musculoskeletal: Yes Neurologic: No Psychiatric: No Reproductive: No Respiratory: No Myocardial Infarction: No Tetanus Vaccination: > 5 Years ?: Not LMP: 05/16/17 : 2 Miscarriage: 1 : 1 Past Surgical History Gynecologic Surgery: Yes (LEAP PROCEDURE: 2007 FOR PRECANCEROUS CELLS ON CERVEX ) Tonsillectomy: Yes (02/2017) Other Surgery: Yes Social History Alcohol Use: Yes ([facility]) Tobacco Use: No (QUIT AGE 23) Substance Use: No Allergies-Medications (Allergen,Severity, Reaction): Coded Allergies: No Known Allergies (Verified , 11/26/16) Reported Meds & Prescriptions Reported Meds & Active Scripts Active Review of Systems Except as stated in HPI: all other systems reviewed are Neg Physical Exam Narrative GENERAL: Well-developed well-nourished female no acute distress no respiratory distress; GCS 15 SKIN: Warm and dry. HEAD: Normocephalic. EYES: No scleral icterus. No injection or drainage. NECK: Supple, trachea midline. No JVD or lymphadenopathy. CARDIOVASCULAR: Regular rate and rhythm without murmurs, gallops, or rubs. RESPIRATORY: Breath sounds equal bilaterally. No accessory muscle use. GASTROINTESTINAL: Abdomen soft, non-tender, nondistended. MUSCULOSKELETAL: No cyanosis, or edema. Attention right ankle no numbness tingling or weakness no ecchymosis positive soft tissue swelling of the lateral malleolus patient does have intact dorsi and plantarflexion dorsalis pedis pulses 2+ to palpation capillary refill is brisk and less than 2 seconds. No deformity. Proximal extremities neurovascular tendon intact. Remainder of extremity exam within normal limits. BACK: Nontender without obvious deformity. No CVA tenderness. Data Data Last Documented VS Vital Signs Date Time Temp Pulse Resp B/P (MAP) Pulse Ox O2 Delivery O2 Flow Rate FiO2 06/11/17 00:45 61 18 117/67 (84) 98 06/10/17 23:47 Room Air 06/10/17 22:33 99.6 Orders Orders Ankle, Complete ([id number]) (06/10/17 ) Support Splint (06/11/17 00:13) Ed Discharge Order (06/11/17 00:13) MDM Medical Decision Making Medical Screen Exam Complete: Yes Emergency Medical Condition: Yes Medical Record Reviewed: Yes Interpretation(s) Last Impressions Ankle X-Ray 06/10/17 0000 Signed Impressions: Service Date/Time: Saturday, June 10, 2017 22:54 - CONCLUSION: 1. Soft tissue swelling without fracture. Shaji Echavarria MD Vital Signs Date Time Temp Pulse Resp B/P (MAP) Pulse Ox O2 Delivery O2 Flow Rate FiO2 06/10/17 23:47 65 18 117/70 (86) 97 Room Air 06/10/17 22:33 99.6 68 20 153/66 (95) 98 Differential Diagnosis Sprain strain subluxation dislocation fracture Narrative Course Imaging study shows no evidence of fracture subluxation or dislocation; padded Rylan applied patient has crutches patient encouraged to use her prescription meloxicam or [id number] ibuprofen patient takes meloxicam as needed for low back pain Diagnosis Primary Impression: Ankle sprain Qualified Codes: S93.401A - Sprain of unspecified ligament of right ankle, initial encounter Referrals: Primary Care Physician call for appointment Patient Instructions: General Instructions Additional Instructions: Wear Rylan Use crutches to assist ambulation Use ibuprofen/Motrin/Advil 600 mg as often as every 6-8 hours as needed for pain associated with inflammation or your prescription meloxicam for pain associated with inflammation Follow-up with your primary care provider as needed Elevate right lower extremity Use ice intermittently for first 12-24 hours to areas of soft tissue swelling subsequently use as needed moist heat Return to the emergency department for any concerns or change in condition Med/Other Pt SpecificInfo: No Change to Meds Disposition: 01 DISCHARGE HOME Condition: Stable Susan Lance MD Jun 11, 2017 00:16
[2017-06-11 00:45] VITALS: BP 117/67
== END 2017-06-11 01:21 | disposition home or self-care (01) ==
LOC: PHED 22:28
DX: S93.401A Sprain of unspecified ligament of right ankle, initial encounter (principal); X50.1XXA Overexertion from prolonged static or awkward postures, initial encounter; Y93.44 Activity, trampolining; Z87.891 Personal history of nicotine dependence
CPT/HCPCS: 73610; 99283